=== PATIENT | female | born 1955 | race African-American/Black ===

== ENCOUNTER 2018-09-21 00:58 | Emergency (ER) | payer SELFPAY, OTHER ==
[2018-09-21] MEDS: IBUPROFEN 200 MG TAB PO (01:52)
[2018-09-21] MEDS: ACETAMINOPHEN 325 MG TAB PO (01:53)
== END 2018-09-21 02:59 | disposition home or self-care (01) ==
LOC: FTE 00:58
DX: S40.011A Contusion of right shoulder, initial encounter (principal); I10 Essential (primary) hypertension; W10.9XXA Fall (on) (from) unspecified stairs and steps, initial encounter; Y92.89 Other specified places as the place of occurrence of the external cause
CPT/HCPCS: 73030; 73030-RT; 99283-25